=== PATIENT | female | born 1945 | race Caucasian/White ===

== ENCOUNTER 2019-04-16 13:17 | Emergency (ER) | payer MEDICARE, BC ==
[~2019-04-16] VITALS: Ht 165.1 cm; Wt 65.8 kg
--- NOTE | 2019-04-16 13:55 | NUR ---
Volunteer Patient Representative assumes care. Patient wants to go home. Patient says that she feels much better. Patient's adult son is at bedside. POLO Perez as Renae american sign language interpreter [email or web address].
--- NOTE | 2019-04-16 14:00 | NUR ---
Patient does not wish to proceed with medical care recommended by Dr. Soriano. Patient given information related to possible complications, up to and including , which could occur as a result of leaving the hospital at this time. Patient verbalizes understanding of risks involved due to leaving against medical advice. Patient has signed AMA form.
== END 2019-04-16 14:02 | disposition home or self-care (01) ==
LOC: ER 13:18
DX: R55 Syncope and collapse (principal); R11.0 Nausea; E11.9 Type 2 diabetes mellitus without complications; T38.3X5A Adverse effect of insulin and oral hypoglycemic [antidiabetic] drugs, initial encounter; Y92.89 Other specified places as the place of occurrence of the external cause
CPT/HCPCS: A4663

== ENCOUNTER 2019-10-15 08:57 | Emergency (ER) | payer MEDICARE, BC ==
[~2019-10-15] VITALS: Ht 162.6 cm; Wt 63.5 kg
--- NOTE | 2019-10-15 09:00 | NUR ---
Pt states she is allergic to PCN, unable to enter in [facility], record is locked by ER coding clerks supervisor.
[2019-10-15] MEDS ORDERED: METF-440 PO (09:09)
--- NOTE | 2019-10-15 09:22 | NUR ---
PT IS IN ROOM #2B. DR BERMUDEZ EVALUATED THE PT.
[2019-10-15 09:36] LABS: *BILIRUBIN,URIN 1+ (NEGATIVE); *BLOOD, URINE 3+ (NEGATIVE); *CLARITY,URINE TURBID (CLEAR); *COLOR,URINE DARK YELLOW (YELLOW); *KETONES,URINE TRACE (NEGATIVE); LEUKOCYTE ESTERASE ,URINE 1+ (NEGATIVE); NITRITE, URINE NEGATIVE (NEGATIVE); UGLUCOSE NEGATIVE (NEGATIVE)
[2019-10-15] MEDS ORDERED: KETOROLAC TROMETHAMINE 15 MG INJ ONE (10:15)
[2019-10-15] MEDS ORDERED: KETOROLAC TROMETHAMINE 15 MG INJ IM ONE (10:15)
[2019-10-15 10:20] VITALS: BP 132/81
--- NOTE | 2019-10-15 10:20 | NUR ---
PT WAS D/C'd TO HOME. D/C INSTRUCTIONS GIVEN TO THE PT BY DR BERMUDEZ.
[2019-10-15 11:25] LABS: BACTERIA,URINE FEW /HPF (NONE SEEN); RBC,URINE TNTC /HPF (0-3); SQUAMOUS EPITHELIAL CELL,UR FEW /HPF (NONE SEEN); WBC,URINE TNTC /HPF (0-3)
== END 2019-10-15 10:21 | disposition home or self-care (01) ==
LOC: ER 08:57
DX: N39.0 Urinary tract infection, site not specified (principal); R10.2 Pelvic and perineal pain; Z87.440 Personal history of urinary (tract) infections; E11.9 Type 2 diabetes mellitus without complications; Z79.84 Long term (current) use of oral hypoglycemic drugs; E78.5 Hyperlipidemia, unspecified
CPT/HCPCS: 81001; 87077; 87086; 87186; 96372; 99283; J1885; A4663

== ENCOUNTER 2020-05-23 16:50 | Emergency (ER) | payer MEDICARE, BC ==
[~2020-05-23] VITALS: Ht 162.6 cm; Wt 63.5 kg
[~2020-05-23 16:50] MED LIST: METF-440 PO
--- NOTE | 2020-05-23 17:01 | NUR ---
Patient is AOx4, mildly anxious with restlessness while complaining of severe itchiness "all over my body", skin rashes seen on her trunk areas and both arms. Breath sounds are clear bilaterally, pending MD evaluation.
[2020-05-23] MEDS ORDERED: NITR100C11 PO (17:11)
[2020-05-23] MEDS ORDERED: diphenhydrAMINE 50 MG/1 ML VIAL ONE (17:14)
[2020-05-23] MEDS ORDERED: diphenhydrAMINE 50 MG/1 ML VIAL IM ONE (17:15)
--- NOTE | 2020-05-23 18:03 | NUR ---
Marked decreased redness to her skin rashes noted. Patient expressed less itchiness to her skin. Patient's son was notified by phone that the patient is ready for discharge.
--- NOTE | 2020-05-23 18:16 | NUR ---
Patient was discharged to home in stable condition with steady gait. Written and verbal after care instructions were given to patient and family. Patient verbalized understanding and compliance of instructions. Stressed follow up with her primary doctor or return to ER for worsening s/s.
== END 2020-05-23 18:18 | disposition home or self-care (01) ==
LOC: ER 16:52
DX: L50.0 Allergic urticaria (principal); T37.8X5A Adverse effect of other specified systemic anti-infectives and antiparasitics, initial encounter; Y92.89 Other specified places as the place of occurrence of the external cause; E78.5 Hyperlipidemia, unspecified; E11.9 Type 2 diabetes mellitus without complications; Z79.84 Long term (current) use of oral hypoglycemic drugs; Z88.0 Allergy status to penicillin
CPT/HCPCS: 96372; 99283; J1200; A4663

== ENCOUNTER 2020-07-02 19:16 | Inpatient (IN) | payer MEDICARE, BC ==
[~2020-07-02] VITALS: Ht 165.1 cm; Wt 62.6 kg
[~2020-07-02 19:16] MED LIST changes: +NITR100C11 PO
[2020-07-02] MEDS ORDERED: ONDANSETRON 4 MG/2 ML VIAL IV ONE (19:30)
[2020-07-02] MEDS ORDERED: FAMOTIDINE. 20 MG/2 ML VIAL IV ONE ×2 (19:30→19:36)
[2020-07-02] MEDS ORDERED: methylPREDNISolone SOD SUCC 125 MG/2 ML VIAL IV ONE (19:30)
[2020-07-02] MEDS ORDERED: IV NORMAL SALINE 1000 ML BAG IV ONE (19:30)
--- NOTE | 2020-07-02 19:35 | NUR ---
Pt BIB RA anaphylaxis, tongue swelling. Pt is alert and oriented, noted to be shaking and anxious on arrival. Per EMS, she recieved epi IM and Benadryl 50 IV. Noted 18g to Rt hand, infusing well. Dr. Silva at bedside on arrival assessing pt.
[2020-07-02 19:36] LABS: BASOPHILS # (AUTO) 0.1 K/uL (0.0-8.0); BASOPHILS % (AUTO) 0.5 % (0.0-2.0); EOSINOPHILS # (AUTO) 0.1 K/uL (0.0-0.7); EOSINOPHILS % (AUTO) 0.9 % (0.0-7.0); HEMATOCRIT 44.3 % (31.2-41.9); HEMOGLOBIN 15.1 g/dL (10.9-14.3); LYMPHOCYTES # (AUTO) 5.1 K/uL (20.0-40.0); LYMPHOCYTES % (AUTO) 39.4 % (20.5-51.5); MEAN CORPUSCULAR HEMOGLOBIN 31.4 uug (24.7-32.8); MEAN CORPUSCULAR HGB CONC 34 g/dL (32.3-35.6); MEAN CORPUSCULAR VOLUME 92.6 fL (75.5-95.3); MONOCYTES # (AUTO) 0.8 K/uL (2.0-10.0); MONOCYTES % (AUTO) 6.4 % (0.0-11.0); NEUTROPHILS # (AUTO) 6.9 K/uL (1.8-8.9); NEUTROPHILS % (AUTO) 52.8 % (38.5-71.5); PLATELET COUNT (AUTO) 305 K/uL (179-408); RED BLOOD CELL COUNT(AUTO) 4.79 MIL/uL (3.63-4.92)
[2020-07-02] MEDS ORDERED: methylPREDNISolone SOD SUCC 125 MG/2 ML VIAL ONE (19:36)
[2020-07-02] MEDS ORDERED: ONDANSETRON 4 MG/2 ML VIAL ONE (19:36)
[2020-07-02 19:41] LABS: CARBON DIOXIDE 27 mmol/L (21-32); CHLORIDE 103 mmol/L (98-107); CREATININE 0.9 mg/dL (0.6-1.3); GLUCOSE 196 mg/dL (74-106); POTASSIUM 3.9 mmol/L (3.5-5.1); UREA NITROGEN, BLOOD 19 mg/dL (7-18)
[2020-07-02 19:47] LABS: ALANINE AMINOTRANSFERASE 28 U/L (14-59); ALKALINE PHOSPHATASE 72 U/L (50-136); ASPARTATE AMINOTRANSFERASE 17 U/L (15-37); BILIRUBIN,DIRECT < 0.1 mg/dL (0.0-0.2); BILIRUBIN,TOTAL 0.2 mg/dL (0.2-1.0); TOTAL PROTEIN, SERUM 6.3 g/dL (6.4-8.2)
--- NOTE | 2020-07-02 20:00 | NUR ---
Pt states she cannot tolerate non-rebreather. Placed on 2L [address] Silva made aware.
--- NOTE | 2020-07-02 20:38 | NUR ---
called for ICU bed, per ICU pt to go to Bed 1.
[2020-07-02] MEDS ORDERED: ATOR10TA PO (21:01)
--- NOTE | 2020-07-02 21:03 | NUR ---
SBAR report given to Satinder CUELLAR
[2020-07-02 21:45] VITALS: BP 149/67
--- NOTE | 2020-07-02 21:45 | NUR ---
This is a 75 years young wonderful lady received from the ER due to anaphylactic reaction to a medication taken earlier in the day. She was brought in by rescue ambulance and given Epinephrine and Benadryl in the field by the medics. She received Zofran, Pepcid, and 125mg Solu-medrol in the ER and arrived with 1L NS wide open. She arrived in the unit via gurney on 2L NC. Patient was able to ambulate to the bed via her own power. Patient was removed form her oxygen and connected to the monitor for baseline vitals. SR in the 70s, BP stable 149/67, 16 resp, and 97% on room air. Peripheral IVs in the right forearm and right hand. Patient is A/O x4 and aware of her current condition. Skin clear.
--- NOTE | 2020-07-02 22:00 | NUR ---
Assessment of patient shows she has some remaining edema. Lips and tongue are still slightly swollen, she is able to stick out her tongue without problem. To my observation I can clearly see underlying skeletal structure, musculature, and vasculature in her hands and feet, though she says she still has some swelling in those extremities.
[2020-07-02] MEDS ORDERED: INSULIN REGULAR, HUMAN 300 UNITS/3 ML VIAL SQ PRN (22:45)
[2020-07-02] MEDS ORDERED: ACETAMINOPHEN 325 MG TABLET PO PRN (22:45)
[2020-07-02] MEDS ORDERED: DEXTROSE 50% 50 ML DISP.SYRIN IV PRN (22:45)
[2020-07-02] MEDS ORDERED: TEMAZEPAM 15 MG CAPSULE PO PRN (22:45)
[2020-07-02] MEDS ORDERED: ONDANSETRON 4 MG/2 ML VIAL IV PRN (22:45)
[2020-07-02] MEDS ORDERED: IV D5/ 0.9% NACL 1,000 ML IV PRN (22:45)
--- NOTE | 2020-07-02 22:45 | NUR ---
Swallow evaluation done by this nurse. Patient showed good swallow reflex with good laryngeal elevation. No signs of aspiration or difficulty swallowing.
[2020-07-02 23:00] VITALS: BP 105/69
[2020-07-02 23:03] LABS: *BILIRUBIN,URIN NEGATIVE (NEGATIVE); *BLOOD, URINE 1+ (NEGATIVE); *COLOR,URINE YELLOW (YELLOW); *KETONES,URINE NEGATIVE (NEGATIVE); *UROBILINOGEN,URINE 0.2 E.U./dl (NORMAL); LEUKOCYTE ESTERASE ,URINE TRACE (NEGATIVE); NITRITE, URINE POSITIVE (NEGATIVE); PH,URINE 6.5 (5.0-8.0); UGLUCOSE 1+ (NEGATIVE)
[2020-07-02 23:14] LABS: *CLARITY,URINE HAZY (CLEAR)
[2020-07-02 23:16] LABS: BACTERIA,URINE FEW /HPF (NONE SEEN); SQUAMOUS EPITHELIAL CELL,UR FEW /HPF (NONE SEEN)
[2020-07-03] VITALS (13 sets, daily range): BP systolic 91–118; BP diastolic 34–66
[2020-07-03 05:07] LABS: BASOPHILS % (AUTO) 0.2 % (0.0-2.0); HEMATOCRIT 40.5 % (31.2-41.9); HEMOGLOBIN 13.6 g/dL (10.9-14.3); LYMPHOCYTES # (AUTO) 0.6 K/uL (20.0-40.0); LYMPHOCYTES % (AUTO) 5.5 % (20.5-51.5); MEAN CORPUSCULAR HEMOGLOBIN 31.2 uug (24.7-32.8); MEAN CORPUSCULAR HGB CONC 34 g/dL (32.3-35.6); MEAN CORPUSCULAR VOLUME 93.1 fL (75.5-95.3); MONOCYTES # (AUTO) 0.1 K/uL (2.0-10.0); MONOCYTES % (AUTO) 0.5 % (0.0-11.0); NEUTROPHILS # (AUTO) 9.7 K/uL (1.8-8.9); NEUTROPHILS % (AUTO) 93.8 % (38.5-71.5); PLATELET COUNT (AUTO) 234 K/uL (179-408); RED BLOOD CELL COUNT(AUTO) 4.35 MIL/uL (3.63-4.92); WHITE BLOOD COUNT (AUTO) 10.3 K/uL (3.8-11.8)
[2020-07-03 05:29] LABS: BILIRUBIN,TOTAL 0.3 mg/dL (0.2-1.0); CREATININE 0.8 mg/dL (0.6-1.3); MAGNESIUM 1.7 mg/dL (1.8-2.4); PHOSPHOROUS 2.8 mg/dL (2.5-4.9); POTASSIUM 4.2 mmol/L (3.5-5.1); TOTAL PROTEIN, SERUM 6.1 g/dL (6.4-8.2)
[2020-07-03 05:30] LABS: THYROID STIMULATING HORMONE 0.564 mIU/mL (0.358-3.740)
[2020-07-03] MEDS: BLOOD SUGAR DIAGNOSTIC 1 EACH STRIP VI SCH ×2 (06:48→11:43)
[2020-07-03] MEDS: INSULIN REGULAR, HUMAN 300 UNIT/3 ML VIAL SQ PRN ×2 (06:50→11:47)
--- NOTE | 2020-07-03 07:35 | NUR ---
received pt in bed, asleep. NSR on the monitor. pt on room air. pt has bedside commode and able to ambulate independently to use it. A&O x3-4, able to make needs known. pt has (R) AC IV running D5NS @70ml/hr.
[2020-07-03] MEDS ORDERED: METFORMIN HCL 500 MG TABLET PO SCH (08:00)
--- NOTE | 2020-07-03 08:30 | NUR ---
spoke to pt's son Ed Schultz on the telephone. son insists to have patient discharged today because he doesn't want her "to be at increased risk for covid". son said to make sure MD gives discharge order today. Son Ed also wants MD to call him. pt also stated she wants to go home. Dr. Javon Castaneda informed.
[2020-07-03] MEDS ORDERED: HYDROCORTISONE SOD SUCCINATE 100 MG/2 ML VIAL IV SCH (09:00)
[2020-07-03] MEDS ORDERED: NITROFURANTOIN/NITROFURAN MAC 100 MG CAPSULE PO SCH ×2 (09:00)
[2020-07-03] MEDS ORDERED: FAMOTIDINE. 20 MG/2 ML VIAL IV SCH (09:00)
[2020-07-03] MEDS: MAGNESIUM SULFATE/D5W 100 ML IV SCH ×2 (09:05→10:20)
--- NOTE | 2020-07-03 11:56 | NUR ---
Dr. Javon Castaneda in the unit to see and assess pt. full report given. per , pt okay to discharge home. Addendum: 07/03/20 at 1205 by JOSE VOSS RN MD aware that pt's son wants MD to call him. phone# [phone]. per he will call son
--- NOTE | 2020-07-03 12:49 | NUR ---
pt discharged home in stable condition. assisted downstairs via wheelchair and pt was picked up by gemma Wrad. complete discharge instructions explained to patient including macrobid prescription, monitoring for allergies, diabetic education, etc. pt verbalized understanding. also explained discharge instructions and macrobid prescription to son Ed and son verbalized understanding. pt ambulatory. pt left with all belongings. discharge instructions and belongings list signed by pt.
[2020-07-03] MEDS ORDERED: ATORVASTATIN 10 MG TABLET PO SCH (21:00)
== END 2020-07-03 12:54 | disposition home or self-care (01) | DRG 915 ==
LOC: ER 19:19 → CCU 21:20
PROVIDERS: ADMIT Internal Medicine
DX: T88.6XXA Anaphylactic reaction due to adverse effect of correct drug or medicament properly administered, initial encounter (principal); J96.01 Acute respiratory failure with hypoxia; N39.0 Urinary tract infection, site not specified; Y92.532 Urgent care center as the place of occurrence of the external cause; Z88.0 Allergy status to penicillin; E78.5 Hyperlipidemia, unspecified; Z79.84 Long term (current) use of oral hypoglycemic drugs; Z20.822 Contact with and (suspected) exposure to COVID-19; E11.9 Type 2 diabetes mellitus without complications; Z87.440 Personal history of urinary (tract) infections; T36.1X5A Adverse effect of cephalosporins and other beta-lactam antibiotics, initial encounter; Y84.8 Other medical procedures as the cause of abnormal reaction of the patient, or of later complication, without mention of misadventure at the time of the procedure; Y82.9 Unspecified medical devices associated with adverse incidents; Y92.89 Other specified places as the place of occurrence of the external cause
CPT/HCPCS: 36415; 70030-TC; 71045; 83735; 84100; 84443; 85025; 87086; 93005; G0378; J1720; J1815; J2405; J2930; J3475; J3490

== ENCOUNTER 2021-08-14 21:56 | Emergency (ER) | payer SELFPAY ==
[~2021-08-14 21:56] MED LIST changes: +ATOR10TA PO
--- NOTE | 2021-08-14 22:22 | NUR ---
Patient was called to be triaged but was not present in the waiting room or outside of ER.
--- NOTE | 2021-08-14 22:40 | NUR ---
Patient was called to be triaged but was not present in the waiting room or outside of ER.
--- NOTE | 2021-08-14 22:55 | NUR ---
Patient was called but not present. PATIENT WAS NOT TRIAGED OR SEEN BY ERMD.
== END 2021-08-14 22:55 | disposition left against medical advice (07) ==
LOC: ER 21:59
DX: Z53.21 Procedure and treatment not carried out due to patient leaving prior to being seen by health care provider (principal)

== ENCOUNTER 2024-06-03 12:19 | Emergency (ER) | payer MEDICARE, BC ==
[~2024-06-03] VITALS: Ht 162.6 cm; Wt 55.3 kg
[2024-06-03] MEDS ORDERED: ACETAMINOPHEN 500 MG TABLET ONE (13:44)
[2024-06-03] MEDS ORDERED: IBUPROFEN 400 MG TABLET ONE (13:45)
[2024-06-03] MEDS: IBUPROFEN 400 MG TABLET PO ONE (13:53)
[2024-06-03] MEDS: ACETAMINOPHEN 500 MG TABLET PO ONE (13:53)
[2024-06-03] MEDS ORDERED: HYDR-3972 PO (14:26)
[2024-06-03] MEDS ORDERED: LACT10SO58 PO (14:36)
[2024-06-03 15:42] VITALS: BP 138/80; TEMP 97.6; O2SAT 99
== END 2024-06-03 15:04 | disposition home or self-care (01) ==
LOC: ER 12:19
DX: S32.018A Other fracture of first lumbar vertebra, initial encounter for closed fracture (principal); E11.9 Type 2 diabetes mellitus without complications; E78.5 Hyperlipidemia, unspecified; Z79.84 Long term (current) use of oral hypoglycemic drugs; Z88.0 Allergy status to penicillin; W19.XXXA Unspecified fall, initial encounter; Y93.9 Activity, unspecified; Y92.9 Unspecified place or not applicable; Y99.9 Unspecified external cause status
CPT/HCPCS: 72131; A4606; A4663; A9150